=== PATIENT | male | born 1985 | race Caucasian/White ===

== ENCOUNTER → 2020-05-07 14:47 | Outpatient (REF) | payer BC, SELFPAY | LOC: ANHLAB 14:47 | PROVIDERS: PCP Family Medicine; Visit Provider Nurse Practitioner | DX: R22.9 Localized swelling, mass and lump, unspecified (principal) | CPT/HCPCS: 88304; 88305; 88342 ==

== ENCOUNTER → 2020-10-07 09:10 | Outpatient (CLI) | payer BC, SELFPAY ==
--- NOTE | ~2020-10-07 | CT_ITS ---
EXAMINATION: CT pelvis wo con DATE: 10/07/2020 09:29 INDICATION: Left inguinal pain. Lower quadrant abdominal pain. TECHNIQUE: Computed tomography (CT) of the pelvis was performed without intravenous contrast. Automat ed exposure control and iterative reconstruction technique were employed. The dose-length product was 599.33 mGy-cm. COMPARISON: None FINDINGS: There is an umbilical hernia containing fat. There are no dilated loops of bowel. The appen dale is normal. The prostate is mildly enlarged. There are no pathologically enlarged lymph nodes. The re is no free intraperitoneal fluid. There are benign bone islands in the pelvis. 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 There is moderate lower lumbar spondylosis. IMPRESSION: 1. Umbilical hernia containing fat. Reviewed, dictated and finalized at location A. [employer]CH[employer]
== END ==
PROVIDERS: Visit Provider Surgery
DX: K42.9 Umbilical hernia without obstruction or gangrene (principal)
CPT/HCPCS: 72192